=== PATIENT | female | born 1945 | race Caucasian/White ===

== ENCOUNTER 2017-03-16 10:50 | Inpatient (IN) | payer MEDICARE, OTHER ==
[~2017-03-16] VITALS: Ht 162.5 cm; Wt 59.0 kg
[2017-03-16] VITALS (11 sets, daily range): BP systolic 130–220; BP diastolic 74–140
--- NOTE | ~2017-03-16 | WRIGHTHP ---
[place], [place] PATIENT HISTORY AND PHYSICAL EXAM NAME: SUSHMA RAI [facility] #: [id number] UNIT #: [id number] ROOM: [place] [address] DOCTOR: EULOGIO GALVIN MD BIRTHDATE: [birth year] DOS: HISTORY OF PRESENT ILLNESS: 1. The patient is a 71-year-old female with past history of generalized anxiety disorder. 2. Benign essential hypertension. 3. GERD, esophagitis, hiatal hernia. 4. Type 2 diabetes mellitus. The patient came into the Emergency Department with complaints of feeling her heart beat and thumping in her ears. In the ER, the patient was found to have severe hypertensive emergency. The patient was evaluated and treated by Dr. Arias Knight in the ER with the 3 doses of labetalol. The patient also had some complaints of acid reflux and heartburns and she was quite anxious. After admission, the patient remains quite anxious and she is being followed closely in the ICU and fire observer, Dr. Lema is following her. She has been on lisinopril, hydralazine and metoprolol at home. No chest pain, no shortness of breath. No other GI or urinary symptoms. REVIEW OF SYSTEMS: LUNGS: No increasing shortness of breath or wheezing. GASTROINTESTINAL: No nausea, vomiting, diarrhea, constipation. CARDIOVASCULAR SYSTEM: Complains of feeling throbbing sensation with heartbeats in her ears. FAMILY HISTORY: Noncontributory. SOCIAL HISTORY: Denies smoking cigarettes, alcohol and drug abuse. MEDICATIONS: The patient takes hydralazine, simvastatin, levothyroxine, aspirin, omeprazole, lisinopril. ALLERGIES: KNOWN ALLERGIES TO PENICILLIN. PHYSICAL EXAMINATION: GENERAL: Alert and oriented x 3, in no visible distress. HEENT AND NECK: Extraocular movements are intact. Sclerae are anicteric. Oral mucosa is moist and clean. No obvious facial weakness. Neck is supple without any lymphadenopathy. No thyromegaly. No JVD. No carotid arterial bruits. LUNGS: Clear to auscultation. No wheezing. No rhonchi. CARDIOVASCULAR SYSTEM: Heart rate is regular in rate and rhythm. S1 and S2 normally audible. No significant murmur or any other abnormal cardiac sounds. ABDOMEN: Soft, nontender. No obvious organomegaly. Bowel sounds are present. No obvious herniation. EXTREMITIES: Without significant cyanosis or edema. Warm to touch. CENTRAL NERVOUS SYSTEM: Alert and oriented x 3. Cranial nerves II-XII are intact. Speech is normal. The patient is able to move all extremities. Normal muscle strength. Deep tendon reflexes are equal on both sides. Plantars were downgoing. [place], [place] PATIENT HISTORY AND PHYSICAL EX[id number] UN[facility] #: [id number] ROOM: [place] [address] DOCTOR: EULOGIO GALVIN MD BIRTHDATE: [birth year] IMPRESSION: 1. The patient with hypertensive crisis with patient is feeling dizzy and had significantly elevated blood pressures, which had been brought down in Emergency Department with 3 IV doses of labetalol. Now the patient is in ICU and blood pressure is being monitored and controlled by fire observer, Dr. Octaviano Lema. The patient is starting to feel better. 2. Hiatal hernia and severe gastroesophageal reflux disease and esophagitis, symptoms to be controlled with omeprazole. 3. Hypothyroidism, replaced with thyroid supplements. 4. Mixed hyperlipidemia treated and controlled with simvastatin. 5. Generalized severe anxiety disorder for which I am restarting her Xanax. EULOGIO GALVIN MD CM:HISPHYS:PATIENT HISTORY AND PHYSICAL EXAMINATION [id number] EULOGIO GALVIN MD 03/17/17 1604 interface
--- NOTE | ~2017-03-16 | EKG ---
[place], [place] ELECTROCARDIOGRAM REPORT NAME: SUSHMA RAI UNIT #: [id number] ROOM: [facility] DOCTOR: TANA RANGEL MD BIRTHDATE: [birth year] DOS: 03/16/2017 TIME: 12:04 p.m. Sinus tachycardia at rate of 100. Baseline artifact noted, otherwise normal electrocardiogram. TANA RANGEL MD CM:EKGRPT:ELECTROCARDIOGRAM REPORT [id number] TANA RANGEL MD
--- NOTE | ~2017-03-16 | PR ---
[place], [place] PROGRESS NOTE NAME: SUSHMA RAI UNIT #: [id number] ROOM: 509 DOCTOR: RAMONA LU MD BIRTHDATE: [birth year] DOS: 03/19/2017 REASON FOR VISIT: Hypertension. SUBJECTIVE: The patient is feeling better. Denies any chest pain or shortness of breath. Her blood pressures are better. No fever or chills. No PND, no orthopnea, no palpitations. REVIEW OF SYSTEMS: Review of the 8 systems negative except as mentioned above. PHYSICAL EXAMINATION: VITAL SIGNS: Blood pressure 122/72, pulse 80, respiratory rate was 20. Weight 58.9 kilos. GENERAL: Alert, comfortable, in no acute distress. HEENT: Pupils are round and equal. No jaundice. Tongue was moist and pharynx was clear. NECK: Supple. No distended neck veins, mild carotid bruits. CHEST: Symmetrical, nontender. LUNGS: Clear to auscultation bilaterally. HEART: Regular rhythm, no S3. Grade 1/6 systolic murmur. ABDOMEN: Nontender. Bowel sounds normal. EXTREMITIES: Showed no edema. Distal pulses are palpable. SKIN: Warm and dry. No cyanosis, no clubbing. NEUROLOGIC: The patient is alert, oriented. No focal neurologic deficit. REVIEW OF THE DIAGNOSTIC TEST: Rhythm strips, the patient was in sinus rhythm. IMPRESSION: 1. Accelerated hypertension, stable. 2. Acid reflux. 3. Diabetes type 2. 4. Anxiety. RECOMMENDATIONS: Continue current medications. 2D echo is pending. She can be discharged from the cardiac standpoint and we will follow her as outpatient. Continue current medications. [place], [place] PROGRESS NOTE NAME: SUSHMA RAI UNIT #: [id number] ROOM: 509 DOCTOR: RAMONA LU MD BIRTHDATE: [birth year] RAMONA LU MD CM:PNTRANS [phone] RAMONA LU MD 03/20/17 1273 interface
--- NOTE | ~2017-03-16 | PR ---
[place], [place] PROGRESS NOTE NAME: SUSHMA RAI [facility] #: [id number] UNIT #: [id number] ROOM: 509 DOCTOR: EULOGIO GALVIN MD BIRTHDATE: [birth year] DOS: 03/18/2017 SUBJECTIVE: Blood pressure 137/76, heart rate of 78 beats per minute, pulse ox 94%, afebrile. The patient is feeling much better, heartburns have resolved. No shortness of breath. OBJECTIVE: VITAL SIGNS: Blood pressure 137/76, heart rate 78 beats per minute, breathing 15 times per minute, temperature 98 degrees Fahrenheit. GENERAL APPEARANCE: The patient is alert and oriented x 3, in no visible distress. HEENT AND NECK: Exam within normal limits. CARDIOVASCULAR SYSTEM: Heart rate is regular in rate and rhythm. S1 and S2 normally audible. LUNGS: Clear to auscultation. ABDOMEN: Soft, nontender. No obvious organomegaly. Bowel sounds are present. EXTREMITIES: Without significant cyanosis or edema. IMPRESSION: 1. The patient with hypertensive crisis, which has resolved, she is feeling much better and blood pressures have normalized. Dr. Octaviano Lema, the merchandise flow team member, is following. 2. Hiatal hernia and severe gastroesophageal reflux disease and esophagitis and heartburns, resolved with omeprazole. 3. Hypothyroidism. The patient on supplements. 4. Mixed hyperlipidemia is being treated with simvastatin. 5. Severe generalized anxiety for which the patient has been kept on Xanax as needed. EULOGIO GALVIN MD CM:PNTRANS [id number] EULOGIO GALVIN MD 03/19/17 0254 interface
--- NOTE | ~2017-03-16 | PR ---
[place], [place] PROGRESS NOTE NAME: SUSHMA RAI UNIT #: [id number] ROOM: 509 DOCTOR: TANA RANGEL MD BIRTHDATE: [birth year] DOS: CARDIOLOGY PROGRESS NOTE SUBJECTIVE: The patient was seen at her bedside today in the Intensive Care Unit at [facility] on 03/18/2017. She presented initially with a hypertensive emergency, manifested by headache, nausea, vomiting and severely elevated blood pressures. Since admission, she has been placed on a thiazide diuretic, beta rodolfo, and NEGRITO inhibitor and her blood pressures have improved. An echocardiogram and renal ultrasound are pending along with serum catecholamine levels. The patient is in much better spirits today, but has not been out of bed much yet. PHYSICAL EXAMINATION: VITAL SIGNS: Today, her pulse is 78 and regular, blood pressure 137/76. She is afebrile. She weighs 59.0 kilograms with a body mass index of 22.3. NECK: Supple. She has no jugular distention. Carotids are full without bruits. She has no neck or supraclavicular masses. LUNGS: Respirations are unlabored. Her chest is clear to auscultation and percussion. She has no presacral edema or chest wall tenderness. HEART: Has a regular rhythm with a fourth heart sound, but no third heart sound or murmur. ABDOMEN: Benign, without masses, organomegaly or bruits. EXTREMITIES: Showed no edema. Peripheral pulses are palpable in the feet. PLAN: She does seem to be doing better on her current medical regimen. I think that she can be moved out of the intensive care unit and ambulated. Once her workup has been completed if her blood pressure remains under control, she can be followed as an outpatient. We thank Dr. oMnzon for asking our advice regarding her care. [place], [place] PROGRESS NOTE NAME: SUSHMA RAI UNIT #: [id number] ROOM: 509 DOCTOR: TANA RANGEL MD BIRTHDATE: [birth year] TANA RANGEL MD CM:PNTRANS [id number] TANA RANGEL MD 03/19/17 0106 interface
--- NOTE | ~2017-03-16 | CON ---
[place], [place] REPORT OF CONSULTATION [id number] #: [id number] [facility]OM: [facility] DOCTOR: TANA RANGEL MD BIRTHDATE: [birth year] DOS: 03/17/2017 REASON FOR CONSULTATION: Hypertension. HISTORY OF PRESENT ILLNESS: The patient is a 71-year-old woman who has had hypertension for over 20 years. She states that in the last year. Her blood pressure has become much more difficult to control. She presented to the hospital on this occasion because her blood pressure at home was running very high. She spoke to her pharmacist who called Dr. Magdaleno office and Dr. Magdaleno requested that the patient be evaluated in the Emergency Room. On presentation her blood pressure is 182/118 and she complained of a headache. She was therefore admitted to the hospital for hypertensive emergency. In the Emergency Room, she was given labetalol and hydralazine with fairly rapid control of her blood pressure. Overnight, her blood pressure has increased again. The patient denies chest pain and denies any history of stroke or myocardial infarction. She does have occasional palpitations and lightheaded spells which can occur when she is sitting. She often hears her pulse in her right ear. She states that this is all gotten worse in the last year. PAST MEDICAL HISTORY: Includes: 1. Hypertension, which has been present for over 20 years. 2. Type 2 diabetes mellitus, which has been present for about 10 years. 3. Hypothyroidism. 4. Gastroesophageal reflux disease. 5. Persistent cough and asthma. The patient has been told that this is related to her gastroesophageal reflux disease. 6. No previous history of heart attack, stroke or diabetic eye problems. MEDICATIONS PRIOR TO ADMISSION: Aspirin 81 mg daily, glipizide 5 mg daily, levothyroxine 25 mcg daily, metformin 1000 mg b.i.d., metoprolol 50 mg b.i.d., and simvastatin 10 mg at bedtime. ALLERGIES: AMOXICILLIN. REVIEW OF SYSTEMS: The patient denies diplopia or loss of vision. She denies syncope, but does have episodes of lightheadedness which can occur when she is sitting. She describes a "wave that passes over" and makes her feel like she could pass out, but then this resolves in seconds. She has not fallen from it. She denies vomiting, but has been nauseous since this hospitalization. She denies fevers, chills or sweats. She denies any recent weight change. She denies any change in bowel or bladder habits. She denies bleeding from her bowels or urine. She denies any hemoptysis, even though she does have a persistent cough. She denies any skin rashes. She denies hot or swollen joints. She has not had polyuria or polydipsia. The remainder of the review of systems is negative except as noted above. FAMILY HISTORY: The patient's father had hypertension, stroke and heart failure, at age 72. Her mother at age 86 from complications of peptic ulcer disease. [place], [place] REPORT OF CONSULTATION NAME: SUSHMA RAI UNIT #: [id number] ROOM: [facility] DOCTOR: TANA RANGEL MD BIRTHDATE: [birth year] SOCIAL HISTORY: The patient does not smoke or consume excessive amounts of alcohol. PHYSICAL EXAMINATION: GENERAL: The patient is a slender white female who is awake, alert and oriented. VITAL SIGNS: Pulse is 93 and regular; blood pressure is currently 180/106. She is afebrile. She weighs 59.0 kg and has a body mass index of 22.3. HEENT: Normocephalic, atraumatic. Extraocular muscles are intact. Sclerae are clear. Pupils are equal, round and reactive to light. Oral mucosa is moist. Tongue is midline. NECK: Supple. She has no jugular distention. Carotids are full. I did not hear any bruits. She had no neck or supraclavicular masses and no thyromegaly. RESPIRATORY: Respirations are unlabored. Her chest is clear to auscultation and percussion. She has no presacral edema or chest wall tenderness. CARDIOVASCULAR: Her heart has a regular rhythm with a soft S4 gallop, but no S3 or murmur. PMI is not displaced. She has no precordial heave, lift or thrill. ABDOMEN: Soft and normally active without masses, organomegaly or bruits. EXTREMITIES: Showed no edema. Peripheral pulses are easily palpated in the feet bilaterally. LABORATORY DATA: Her electrocardiogram shows sinus rhythm, no acute changes were seen. Hemoglobin is 12.6, white count 9600, platelets 308,000. INR 1.0. Sodium 136, potassium 3.4, chloride 99, CO2 27, BUN 12, creatinine 0.61. Sugar is 159. Lactic acid was mildly elevated at 2.2 on admission. Troponin levels have been normal. ProBNP is 306. IMPRESSIONS: 1. Hypertensive emergency. 2. History of essential hypertension present over 20 years. 3. Type 2 diabetes mellitus. PLAN: We will add an NEGRITO inhibitor and a thiazide diuretic to her regimen to help manage her blood pressure. We will be getting a renal ultrasound. We will also get an echo to see what the effects of her blood pressure and her heart might have been. We will get a carotid ultrasound should she ____ of significant tenderness in her right ear related to her pulse. I will be getting a fractionated plasma catecholamine level to screen for pheochromocytoma. We thank Dr. Monzon for asking our advice regarding her care. [place], [place] REPORT OF CONSULTATION NAME: SUSHMA RAI [place] UNIT #: [id number] ROOM: [facility] DOCTOR: TANA RANGEL MD BIRTHDATE: [birth year] TANA RANGEL MD CM:CONSTR:REPORT OF CONSULTATION 1358 03/18/17 1206 interface
--- NOTE | ~2017-03-16 | PR ---
[place], [place] PROGRESS NOTE NAME: SUSHMA RAI [facility] #: [id number] UNIT #: [id number] ROOM: 509 DOCTOR: EULOGIO GALVIN MD BIRTHDATE: [birth year] DOS: 03/19/2017 SUBJECTIVE: The patient is feeling much better. Her heartburns have improved. Blood pressure is better controlled. OBJECTIVE: VITAL SIGNS: Blood pressure 134/68, heart rate 80 beats per minute, breathing 18 times per minute, temperature 98 degrees Fahrenheit. GENERAL APPEARANCE: The patient is alert and oriented x 3, in no visible distress. HEENT AND NECK: Exam within normal limits. CARDIOVASCULAR SYSTEM: Heart rate is regular in rate and rhythm. S1 and S2 normally audible. LUNGS: Clear to auscultation. ABDOMEN: Soft, nontender. No obvious organomegaly. Bowel sounds are present. EXTREMITIES: Without significant cyanosis or edema. IMPRESSION: 1. The patient with hypertensive crisis, resolved. The patient being followed by Cardiology and workup further for her severe hypertension. The patient's blood pressure is better controlled now. She is still being worked up by Cardiology. 2. Hiatal hernia with severe gastroesophageal reflux disease, now asymptomatic with omeprazole. 3. Hypothyroidism, treated with supplements. 4. Mixed hyperlipidemia, treated with simvastatin. 5. Generalized anxiety disorder for which she was kept on p.r.n. Xanax. 6. I will check with Cardiology and see if they would agree to discharge the patient and complete the rest of the workup apparently an echocardiogram performed as an outpatient. In that case, the discharge diagnoses would be: DISCHARGE DIAGNOSES: 1. Hypertensive crisis, controlled, treated and normalized blood pressures now. 2. Type 2 diabetes mellitus with controlled sugars. 3. Generalized anxiety disorder, reasonably controlled. 4. Hiatal hernia with gastroesophageal reflux disease and severe esophagitis, now improved with omeprazole. DISCHARGE MEDICATIONS: Lisinopril 5 mg b.i.d., omeprazole 20 mg b.i.d., aspirin 81 mg a day, levothyroxine 25 mcg a day, simvastatin 10 mg a day, metoprolol 50 mg b.i.d., calcium carbonate 500 mg b.i.d., hydrochlorothiazide 12.5 mg a day. Follow up with PCP in less than a week and follow up with Cardiology in a week's time. The patient was admitted when she was feeling dizzy and she was found to be severely hypertensive with systolic blood pressure of more than 200. The patient was given 3 doses of labetalol before her blood pressure started improving in the Emergency Department and she was recommended for admission and further management. Cardiology consulted, they followed her during the stay at [place], [place] PROGRESS NOTE NAME: SUSHMA RAI UNIT #: [id number] ROOM: 509 DOCTOR: EULOGIO GALVIN MD BIRTHDATE: [birth year] the hospital and performed renal ultrasound and carotid arterial Dopplers were performed, both did not show any critical disease. An echocardiogram was apparently pending, which can be performed as an outpatient. Case discussed with Dr. Octaviano Lema, the test engine evaluator today and he has agreed that the patient can be discharged to home to follow up with her PCP and with Cardiology as an outpatient. The rest of the workup can be completed as an outpatient as necessary and blood pressures monitored and controlled. During her stay at the hospital, lisinopril was added to the treatment along with hydrochlorothiazide and she is being continued on these medications at home. DISCHARGE MANAGEMENT: Lisinopril 5 mg b.i.d., omeprazole 20 mg b.i.d., aspirin 81 mg a day, levothyroxine 25 mcg daily, simvastatin 10 mg at bedtime, metoprolol 50 mg b.i.d., hydrochlorothiazide 12.5 mg a day. EULOGIO GALVIN MD CM:PNTRANS 1749 EULOGIO GALVIN MD 03/20/17 0906 interface
[~2017-03-16 10:50] MED LIST: GLIPIZIDE5 M1 PO; LEVOTHYROXIN0.025 MG PO; METFORMIN1000 MG PO; METFORMIN500 MG PO; METOPROLOL SR25 MG PO; SYMBICORT1 AER INH; TRICOR145 MG PO
[2017-03-16 11:56] LABS: BILIRUBIN NEGATIVE (NEGATIVE); BLOOD NEGATIVE (NEGATIVE); CLARITY CLEAR (CLEAR); COLOR YELLOW (YELLOW); GLUCOSE NEGATIVE (NEGATIVE); KETONE NEGATIVE (NEGATIVE); LEUKO ESTERASE 1+ (NEGATIVE); NITRITE NEGATIVE (NEGATIVE); PH 5.5 (5.0-9.0); PROTEIN NEGATIVE (NEGATIVE); SPECIFIC GRAVITY <= 1.005 (1.005-1.030); UROBILINOGEN 0.2 E.U./dl (0.2-1.0)
[2017-03-16 12:04] LABS: BASO % 0.5 % (0.0-1.0); EOS # 0.2 10*3/uL (0.0-0.4); HEMATOCRIT 40.8 % (37.0-47.0); HEMOGLOBIN 13.5 g/dl (12.0-16.0); LYMPH # 2.1 10*3/uL (1.3-4.4); MEAN CELL VOLUME 80.5 fl (81.0-99.0); MEAN CORPUSCULAR HGB 26.6 pg (27.0-31.0); MEAN CORPUSCULAR HGB CONC 33.1 g/dl (33.0-37.0); MEAN PLATELET VOLUME 9.9 fl (9.6-12.3); MONO # 0.8 10*3/uL (0.1-1.0); MONO % 10.1 % (3.0-9.0); NEUT # 4.7 10*3/uL (2.3-7.9); NEUT % 60.1 % (47.0-73.0); PLATELET COUNT AUTOMATED 279 10*3/uL (130-400); RED BLOOD COUNT 5.07 10*6/uL (4.10-5.10); RED CELL DISTRI WIDTH 14.2 % (0-14.5); WHITE BLOOD COUNT 7.9 10*3/uL (4.8-10.8)
[2017-03-16 12:12] LABS: PROTHROMBIN TIME 10.2 SECONDS (9.0-12.4)
[2017-03-16 12:22] LABS: ALKALINE PHOSPHATASE 108 U/L (45-117); BILIRUBIN, TOTAL 0.6 mg/dl (0.2-1.0); BUN 11 mg/dl (7-24); CARBON DIOXIDE 24 mmol/L (21-32); CHLORIDE 103 mmol/L (98-107); CKMB 1.4 ng/ml (0.5-3.6); CPK 100 U/L (26-192); EST GLOM FILT AFRICAN AMERICAN > 60 ml/min; GLUCOSE 159 mg/dL (65-99); MAGNESIUM 1.5 mg/dL (1.5-2.1); POTASSIUM 3.8 mmol/L (3.5-5.1); SGOT/AST 27 IU/L (3-35); SGPT/ALT 25 U/L (12-78); SODIUM 140 mmol/L (136-145); TOTAL PROTEIN 7.7 gm/dL (6.4-8.2)
[2017-03-16 12:23] LABS: BACTERIA TRACE; URINE REFLEX COMMENT YES (NO)
[2017-03-16 12:28] LABS: C-REACTIVE PROTEIN < 0.29 MG/DL (0-0.3); TROPONIN I < 0.015 ng/ml (<0.045)
[2017-03-16 14:02] LABS: LA>2 REFLEX 2 HR DRAW NOW
[2017-03-16] MEDS ORDERED: ASPIRIN81 M1 PO (15:36)
[2017-03-16] MEDS ORDERED: METOPROLOL SUCC50 M1 PO (15:37)
[2017-03-16] MEDS ORDERED: LOSARTAN POTAS100 M1 PO (15:38)
[2017-03-16] MEDS ORDERED: SIMVASTATIN10 MG PO (15:38)
[2017-03-16] MEDS ORDERED: METFORMIN1000 MG PO (17:24)
[2017-03-17 04:00] VITALS: BP 137/83
[2017-03-17 06:08] LABS: BASO % 0.2 % (0.0-1.0); EOS % 0.1 % (1.0-4.0); HEMATOCRIT 37.1 % (37.0-47.0); HEMOGLOBIN 12.6 g/dl (12.0-16.0); LYMPH # 1.8 10*3/uL (1.3-4.4); LYMPH % 18.9 % (27.0-41.0); MEAN CELL VOLUME 78.9 fl (81.0-99.0); MEAN CORPUSCULAR HGB 26.8 pg (27.0-31.0); MEAN PLATELET VOLUME 9.6 fl (9.6-12.3); MONO # 0.8 10*3/uL (0.1-1.0); MONO % 8.3 % (3.0-9.0); NEUT # 6.9 10*3/uL (2.3-7.9); NEUT % 72.2 % (47.0-73.0); PLATELET COUNT AUTOMATED 308 10*3/uL (130-400); RED CELL DISTRI WIDTH 14.2 % (0-14.5); WHITE BLOOD COUNT 9.6 10*3/uL (4.8-10.8)
[2017-03-17 06:19] LABS: BUN 12 mg/dl (7-24); CARBON DIOXIDE 27 mmol/L (21-32); CHLORIDE 99 mmol/L (98-107); EST GLOM FILT AFRICAN AMERICAN > 60 ml/min; GLUCOSE 159 mg/dL (65-99); POTASSIUM 3.4 mmol/L (3.5-5.1); SODIUM 136 mmol/L (136-145)
[2017-03-17 08:00] VITALS: BP 170/93
[2017-03-17 12:00] VITALS: BP 180/106
[2017-03-17 16:00] VITALS: BP 146/89
[2017-03-17 20:00] VITALS: BP 154/90; BP 160/91
[2017-03-18] VITALS: BP 148/95
[2017-03-18 04:00] VITALS: BP 137/78
[2017-03-18 05:41] LABS: BUN 10 mg/dl (7-24); CARBON DIOXIDE 28 mmol/L (21-32); CHLORIDE 101 mmol/L (98-107); EST GLOM FILT AFRICAN AMERICAN > 60 ml/min; GLUCOSE 124 mg/dL (65-99); SODIUM 138 mmol/L (136-145)
[2017-03-18 08:00] VITALS: BP 137/76
[2017-03-18 12:00] VITALS: BP 120/85
[2017-03-18 16:00] VITALS: BP 124/64
[2017-03-18 20:00] VITALS: BP 137/59
[2017-03-19] VITALS: BP 136/81
[2017-03-19 08:00] VITALS: BP 136/90
[2017-03-19 12:00] VITALS: BP 122/72
[2017-03-19 16:00] VITALS: BP 130/48; BP 134/68
[2017-03-19] MEDS ORDERED: OMEPRAZOLE D/R20 MG PO (17:44)
[2017-03-19] MEDS ORDERED: HYDR12.5C PO (17:44)
[2017-03-19] MEDS ORDERED: LISINOPRIL5 MG PO (17:44)
== END 2017-03-19 18:34 | disposition home or self-care (01) | DRG 305 ==
LOC: ED 10:50 → EDHOLD 13:49 → 5E 13:49 → ICCU 15:12 → 5E 03-18 17:36
PROVIDERS: Emergency Medicine; Internal Medicine; Internal Medicine Cardiovascular Disease
DX: I16.1 Hypertensive emergency (principal); E11.9 Type 2 diabetes mellitus without complications; E03.9 Hypothyroidism, unspecified; K44.9 Diaphragmatic hernia without obstruction or gangrene; E78.2 Mixed hyperlipidemia; F41.1 Generalized anxiety disorder; I10 Essential (primary) hypertension; K21.0 Gastro-esophageal reflux disease with esophagitis; Z88.1 Allergy status to other antibiotic agents; Z82.49 Family history of ischemic heart disease and other diseases of the circulatory system; Z88.0 Allergy status to penicillin; Z82.3 Family history of stroke; Z83.79 Family history of other diseases of the digestive system